=== PATIENT | male | born 1980 | race Caucasian/White ===

== ENCOUNTER 2019-09-25 09:04 | Day surgery (SDC) | payer OTHER ==
[~2019-09-25] VITALS: Ht 182.9 cm; Wt 101.4 kg
--- NOTE | 2019-09-25 11:12 | NUR ---
09/25/19 1112 Michael Valenzuela INTRASCALING BLOCK COMPLETED IN REPLACED BY [facility] WITHOUT DIFFICULTY. PT TOLERATED PROCEDURE WELL.
--- NOTE | 2019-09-25 13:15 | NUR ---
09/25/19 1315 Elise Waller IMAGING CONTACTED FOR POST OP XRAY.
--- NOTE | 2019-09-25 13:54 | NUR ---
09/25/19 7600 Elise Waller PT IS RESTING IN BED WITH HEAD OF BED ELEVATED. VSS. HE SAYS HE FEELS WEIRD. HE IS GIVEN SOME JUICE AND HE THINKS THAT IS HELPING. WILL KEEP HIM IN BED FOR A FEW MORE MINUTES AND THEN TRANSFER HIM TO THE RECLINER. HIS IS AT HIS SIDE. NO COMPLAINTS OF PAIN OR NAUSEA.
== END 2019-09-25 14:31 | disposition home or self-care (01) ==
LOC: ORSCSDS 09:04
PROVIDERS: Orthopaedic Surgery
PROC: 0PSB04Z Reposition Left Clavicle with Internal Fixation Device, Open Approach (ICD-10-PCS; principal; 2019-09-25 10:45)
DX: S42.022A Displaced fracture of shaft of left clavicle, initial encounter for closed fracture (principal)
CPT/HCPCS: 73000; C1713; J0690; J1100; J1885; J2001; J2250; J2405; J2704; J2795; J3010; J7120